=== PATIENT | female | born 1960 | race Caucasian/White ===

== ENCOUNTER 2017-05-19 19:00 | Observation (INO) | payer OTHER ==
[~2017-05-19] VITALS: Ht 160 cm; Wt 132.4 kg
[~2017-05-19 19:00] MED LIST: ALBU6.7H INH; ESCI20TA PO; FURO40TA5 PO; METF500T4 PO; PHEN473S12 PO; ZOLP10TA6 PO
[2017-05-19] MEDS ORDERED: SODIUM CHLORIDE 0.9% 1,000 ML IV ONE (19:41)
[2017-05-19] MEDS ORDERED: METHYLPREDNISOLONE SOD SUCC 125 MG/2 ML VIAL IV STA (19:41)
[2017-05-19] MEDS ORDERED: IPRATROPIUM/ALBUTEROL 0.5-3(2.5)MG/3ML NEB HHN ONE (19:45)
[2017-05-19 20:28] LABS: BASOPHILS % 0.6 % (0.0-2.0); HEMATOCRIT. 40.9 % (36.0-48.0); HEMOGLOBIN. 13.4 g/dL (12.0-16.0); LYMPHOCYTES % 27.3 % (20.0-50.0); MEAN CORPUSCULAR HEMOGLOBIN 29.3 pg (28.0-32.0); MEAN CORPUSCULAR VOLUME 89.9 fL (81.0-99.0); MEAN PLATELET VOLUME 7.9 fl (7.4-10.4); MONOCYTES % 6.2 % (2.0-8.0); NEUTROPHILS % 61.9 % (40.0-76.0); PLATELET 265 x1000/uL (130-400); RED BLOOD CELL COUNT 4.55 mill/uL (4.2-5.4); RED CELL DISTRIBUTION WIDTH 14.1 % (11.6-14.6)
[2017-05-19 20:40] LABS: CARBON DIOXIDE 29 mEq/L (21-32); CHLORIDE 104 mEq/L (98-107)
[2017-05-19 20:46] LABS: TROPONIN I < 0.02 ng/mL (0.00-0.04)
[2017-05-19 21:13] LABS: PARTIAL THROMBOPLASTIN TIME 27.1 sec (23.4-31.0); PROTHROMBIN TIME 10.7 sec (9.4-11.6)
[2017-05-19] MEDS ORDERED: AZITHROMYCIN 500 MG in DEXT 5% WATER 250 ML IV SCH (22:30)
[2017-05-19] MEDS ORDERED: CEFTRIAXONE 1 G PREMIX 50 ML IV ONE (22:30)
[2017-05-20] VITALS: BP 129/76
[2017-05-20 00:14] LABS: BG BASE EXCESS 4.8 mmol/L (-2.0-2.0); BG CARBOXYHEMOGLOBIN 0.6 % (0.5-1.5); BG DEOXYHEMOGLOBIN 3.8 % (0.0-5.0); BG FRACTION INSPIRED OXYGEN 28; BG METHEMOGLOBIN 0.3 % (0.0-1.5); BG OXYGEN SATURATION 96.2 % (92.0-98.5); BG OXYHEMOGLOBIN 95.3 % (94.0-97.0); BG PCO2 52.1 mmHg (35.0-45.0); BG PH 7.393 (7.350-7.450); BG PO2 81.8 mmHg (75.0-100.0); BG SAMPLE SITE LEFT RADIAL; BG TOTAL HEMOGLOBIN 14.5 g/dL (12.0-18.0); BG VENT MODE MASK - TRACH
[2017-05-20 00:30] VITALS: BP 129/76
[2017-05-20 08:00] VITALS: BP 132/67
[2017-05-20] MEDS ORDERED: IPRATROPIUM/ALBUTEROL 0.5-3(2.5)MG/3ML NEB ONE (08:09)
[2017-05-20] MEDS ORDERED: NON FORMULARY PATIENT HOME MED EA XX SCH (10:00)
[2017-05-20] MEDS ORDERED: HYDROCODONE/ACETAMINOPHEN 10/325MG TABLET PO PRN (10:00)
[2017-05-20] MEDS ORDERED: DEXTROSE 50% WATER 50ML SYRINGE IV PRN (10:00)
[2017-05-20] MEDS ORDERED: CLONIDINE 0.1MG TABLET PO PRN (10:00)
[2017-05-20] MEDS ORDERED: FUROSEMIDE 40MG TABLET PO SCH (10:43)
[2017-05-20] MEDS ORDERED: PANTOPRAZOLE 40MG DR TABLET PO SCH (10:44)
[2017-05-20] MEDS ORDERED: CITALOPRAM HYDROBROMIDE 20MG TABLET PO SCH (10:54)
[2017-05-20] MEDS: IPRATROPIUM/ALBUTEROL 0.5-3(2.5)MG/3ML NEB HHN SCH ×2 (11:48→21:28)
[2017-05-20 12:00] VITALS: BP 102/63
[2017-05-20] MEDS: BLOOD SUGAR DIAGNOSTIC STRIP TEST SCH ×3 (12:19→21:11)
[2017-05-20] MEDS: METHYLPREDNISOLONE SOD SUCC 40 MG/ML VIAL IV SCH ×2 (12:28→17:01)
[2017-05-20] MEDS: INSULIN LISPRO 100 UNITS/ML SUBCUT SCH ×3 (12:50→21:13)
[2017-05-20 16:00] VITALS: BP 103/60
[2017-05-20] MEDS ORDERED: METFORMIN HCL 500MG TABLET PO SCH (17:50)
[2017-05-20] MEDS ORDERED: ATORVASTATIN CALCIUM 20MG TABLET PO SCH (21:00)
[2017-05-20 22:10] VITALS: BP 131/72
[2017-05-21] MEDS ORDERED: ASPIRIN 81MG EC TABLET PO SCH (09:00)
== END 2017-05-20 22:30 | disposition short-term general hospital (02) ==
LOC: ER 19:00 → INTOOBSV 22:47 → 6WST 22:47 → EDBEDREQ 22:51 → ENRESERV 22:56
PROVIDERS: ADMIT Internal Medicine; ATTEND Internal Medicine
DX: J20.9 Acute bronchitis, unspecified (principal); J84.112 Idiopathic pulmonary fibrosis; I10 Essential (primary) hypertension; E66.9 Obesity, unspecified; E11.9 Type 2 diabetes mellitus without complications; Z87.01 Personal history of pneumonia (recurrent); Z90.710 Acquired absence of both cervix and uterus; Z93.0 Tracheostomy status
CPT/HCPCS: 36415; 36600; 71010; 80053; 82375; 82805; 82962; 83605; 83880; 84484; 85025; 85610; 85730; 87040; 93005; 96365; 96367; 96372; 96375; 96376; 99291; G0378; J0456; J0696; J1815; J2920; J2930; J7030; 94640; 96361; J7060; J7620